=== PATIENT | male | born 1940 | race Caucasian/White ===

== ENCOUNTER 2016-08-13 17:29 | Observation (INO) | payer MEDICARE ==
[2016-08-13] MEDS ORDERED: Sodium Chloride 0.9% 1,000 ML IV ONE ×2 (18:31→21:42)
[2016-08-13] MEDS ORDERED: Sodium Chloride 0.9% 10 ML Syringe FLUSH PRN (19:10)
--- NOTE | 2016-08-13 21:11 | EDM.PDOC ---
[id number] 4d DEHYDRATION Time Seen by Provider: 08/13/16 18:26 Source of Information: Reports: Patient History Limitations: Reports: Altered Mental Status - History of Present Illness INITIAL COMMENTS - FREE TEXT/NARRATIVE: 75 y.o.w.m came to the ed, after he was seen in the clinic and found to have an acutely elevated CR 1.8-3.4) and BUN (30-60)Pt was on Motrin and Acyclovir (for herpes Zoster). Acyclovir was started last Thursday. On arrival, pt was able to void. Blader scanner showed 350 cc, residual. Nephrology was consulted. Dr. Pittman recommended, to give the PT NS over night and check labs in am. Pt denies any acute medical issues. BP was 108/66 pulse was 62 Onset: Gradual Onset Date: 08/11/16 Onset Time: 08:00 Duration: Day(s):, Getting Worse Location: Reports: Abdomen Severity: Moderate Improves with: Reports: None Worsens with: Reports: None - Related Data Allergies Allergy/AdvReac Type Severity Reaction Status Date / Time amoxicillin Allergy Severe Hives Verified 08/13/16 18:25 Home Meds: Home Meds Allopurinol [Zyloprim] 150 mg PO DAILY 08/13/16 [History] Aspirin [Adult Low Dose Aspirin EC] 81 mg PO DAILY 08/13/16 [History] Atenolol [Tenormin] 100 mg PO DAILY 08/13/16 [History] Multivitamin [Multivitamins] 1 each PO DAILY 08/13/16 [History] Simvastatin [Zocor] 80 mg PO BEDTIME 08/13/16 [History] amLODIPine [Norvasc] 10 mg PO DAILY 08/13/16 [History] Cholecalciferol (Vitamin D3) [Vitamin D3] 1,000 units PO DAILY 08/14/16 [History ] Past Medical History HEENT History: Reports: Impaired Vision Cardiovascular History: Reports: Hypertension Genitourinary History: Reports: Renal Disease - Infectious Disease History Infectious Disease History: Reports: Chicken Pox, Shingles Social & Family History - Tobacco Use Smoking Status *Q: Current Every Day Smoker Years of Tobacco use: 58 Packs/Tins Daily: 1 - Caffeine Use Caffeine Use: Reports: Coffee - Recreational Drug Use Recreational Drug Use: No ED ROS GENERAL - Review of Systems Review Of Systems: Unable To Obtain Constitutional: Reports: No Symptoms HEENT: Reports: No Symptoms Respiratory: Reports: No Symptoms Cardiovascular: Reports: No Symptoms Endocrine: Reports: No Symptoms GI/Abdominal: Reports: No Symptoms : Reports: No Symptoms Musculoskeletal: Reports: No Symptoms Skin: Reports: Pruritis, Rash Neurological: Reports: No Symptoms Psychiatric: Reports: No Symptoms Hematologic/Lymphatic: Reports: No Symptoms Immunologic: Reports: No Symptoms ED EXAM, GENERAL - Physical Exam Exam: See Below Exam Limited By: No Limitations General Appearance: Alert, WD/WN, No Apparent Distress Eye Exam: Bilateral Eye: Normal Inspection Ears: Normal External Exam Ear Exam: Bilateral Ear: Auricle Normal Nose: Normal Inspection Throat/Mouth: Other (dry mucosal membranes) Head: Atraumatic, Normocephalic Neck: Normal Inspection, Supple, Non-Tender, Full Range of Motion Respiratory/Chest: No Respiratory Distress, Lungs Clear, Normal Breath Sounds Cardiovascular: Normal Peripheral Pulses, Regular Rate, Rhythm, No Edema Peripheral Pulses: 1+: Femoral (L), Femoral (R) GI/Abdominal: Normal Bowel Sounds (Male) Exam: Deferred Rectal (Males) Exam: Deferred Back Exam: Normal Inspection, Full Range of Motion Extremities: Normal Inspection Neurological: Alert, Oriented, CN II-XII Intact, Normal Cognition Psychiatric: Normal Affect, Normal Mood Skin Exam: Warm, Dry, Normal Color, Rash (shingles left abd. wall) Lymphatic: No Adenopathy Course - Vital Signs Text/Narrative:: 75 y.o.w.m came to the ed, after he was seen in the clinic and found to have an acutely elevated CR 1.8-3.4) and BUN (30-60)Pt was on Motrin and Acyclovir (for herpes Zoster). Acyclovir was started last Thursday. On arrival, pt was able to void. Blader scanner showed 350 cc, residual. Nephrology was consulted. Dr. Pittman recommended, to give the PT NS over night and check labs in am. Pt denies any acute medical issues. BP was 108/66 pulse was 62 PE: Dry mucosal membrane. herpes zoster left abd. wall Labs: Ns 129 K 5.1 ISHAAN 60 Cr 3.5 UA: Neg SG 1.01 Protein 30, pH 6.0, Bladder scanner: 350 cc. Impression: Acute renal insufficiency, possible medication related (acyclovir, motrin), dehydration Consultation: Sm[facility] Room Operator at [facility] Plan: Admit for obs, recheck labs in am. report results to [place] Last Recorded V/S: Last Vital Signs Temp 37.0 C 08/14/16 08:01 Pulse 81 08/14/16 08:01 Resp 17 08/14/16 08:01 BP 115/79 08/14/16 08:01 Pulse Ox 95 08/14/16 08:01 - Orders/Labs/Meds Labs: Laboratory Tests 08/13/16 08/13/16 08/13/16 Range/Units 18:50 18:50 18:50 WBC 7.9 (4.5-12.0) X10-3/uL RBC 3.74 L (4.30-5.75) x10(6)uL Hgb 12.0 (11.5-15.5) g/dL Hct 35.6 (30.0-51.3) % MCV 95.3 (80-96) fL MCH 32.2 (27.7-33.6) pg MCHC 33.8 (32.2-35.4) g/dL RDW 15.0 (11.5-15.5) % Plt Count 171 (125-369) X10(3)uL MPV 8.5 (7.4-10.4) fL Neut % (Auto) 81.5 (46-82) % Lymph % (Auto) 11.5 L (13-37) % [place] % (Auto) 6.1 (4-12) % Eos % (Auto) 1 (1.0-5.0) % Baso % (Auto) 0 (0-2) % Neut # (Auto) 6.4 (1.6-8.3) # Lymph # (Auto) 0.9 (0.6-5.0) # [place] # (Auto) 0.5 (0.0-1.3) # Eos # (Auto) 0.1 (0.0-0.8) # Baso # (Auto) 0.0 (0.0-0.2) # Sodium 129 L (135-145) mmol/L Potassium 5.1 (3.5-5.3) mmol/L Chloride 105 (100-110) mmol/L Carbon Dioxide 16 L (23-29) mmol/L BUN 60 H (8-23) mg/dL Creatinine 3.4 H* (0.6-1.3) mg/dL Est Cr Clr Drug Dosing 18.44 mL/min Estimated GFR (MDRD) 18 L (>60) BUN/Creatinine Ratio 17.1 (9-20) Glucose 100 (80-116) mg/dL Calcium 9.4 (8.6-10.2) mg/dL B-Natriuretic Peptide 104 H (0-100) pg/mL Urine Color (YELLOW) Urine Appearance (CLEAR) Urine pH (5.0-6.5) Ur Specific [place] (1.010-1.025) Urine Protein (NEGATIVE) mg/dL Urine Glucose (UA) (NEGATIVE) mg/dL Urine Ketones (NEGATIVE) mg/dL Urine Occult Blood (NEGATIVE) Urine Nitrite (NEGATIVE) Urine Bilirubin (NEGATIVE) Urine Urobilinogen (NEGATIVE) mg/dL Ur Leukocyte Esterase (NEGATIVE) Urine RBC (0) Urine WBC (0) Ur Squamous Epith Cells (NS,R,O) Urine Bacteria (NS) 08/13/16 Range/Units 20:05 WBC (4.5-12.0) X10-3/uL RBC (4.30-5.75) x10(6)uL Hgb (11.5-15.5) g/dL Hct (30.0-51.3) % MCV (80-96) fL MCH (27.7-33.6) pg MCHC (32.2-35.4) g/dL RDW (11.5-15.5) % Plt Count (125-369) X10(3)uL MPV (7.4-10.4) fL Neut % (Auto) (46-82) % Lymph % (Auto) (13-37) % [place] % (Auto) (4-12) % Eos % (Auto) (1.0-5.0) % Baso % (Auto) (0-2) % Neut # (Auto) (1.6-8.3) # Lymph # (Auto) (0.6-5.0) # [place] # (Auto) (0.0-1.3) # Eos # (Auto) (0.0-0.8) # Baso # (Auto) (0.0-0.2) # Sodium (135-145) mmol/L Potassium (3.5-5.3) mmol/L Chloride (100-110) mmol/L Carbon Dioxide (23-29) mmol/L BUN (8-23) mg/dL Creatinine (0.6-1.3) mg/dL Est Cr Clr Drug Dosing mL/min Estimated GFR (MDRD) (>60) BUN/Creatinine Ratio (9-20) Glucose (80-116) mg/dL Calcium (8.6-10.2) mg/dL B-Natriuretic Peptide (0-100) pg/mL Urine Color Yellow (YELLOW) Urine Appearance Clear (CLEAR) Urine pH 6.0 (5.0-6.5) Ur Specific [place] 1.010 (1.010-1.025) Urine Protein 30 H (NEGATIVE) mg/dL Urine Glucose (UA) Normal (NEGATIVE) mg/dL Urine Ketones Negative (NEGATIVE) mg/dL Urine Occult Blood Negative (NEGATIVE) Urine Nitrite Negative (NEGATIVE) Urine Bilirubin Negative (NEGATIVE) Urine Urobilinogen Normal (NEGATIVE) mg/dL Ur Leukocyte Esterase Negative (NEGATIVE) Urine RBC 0-5 (0) Urine WBC 0-5 (0) Ur Squamous Epith Cells Occasional (NS,R,O) Urine Bacteria Few H (NS) Meds: Medications Discontinued Medications Generic Name Dose Route Start Last Admin Trade Name Spencerq PRN Reason Stop Dose Admin Sodium Chloride 1,000 mls @ 999 mls/hr 08/13/16 18:31 08/13/16 19:08 Normal Saline IV 08/13/16 19:31 999 mls/hr .BOLUS ONE Administration Sodium Chloride 1,000 mls @ 999 mls/hr 08/13/16 21:42 08/13/16 20:40 Normal Saline IV 08/13/16 22:42 999 mls/hr .BOLUS ONE Administration Sodium Chloride 1,000 mls @ 150 mls/hr 08/13/16 22:15 08/14/16 06:18 Normal Saline IV 150 mls/hr ASDIRECTED ARIS Administration Sodium Chloride 10 ml 08/13/16 19:10 Saline Flush FLUSH ASDIRECTED PRN Keep Vein Open Departure - Departure Time of Disposition: 05:00 Disposition: Refer to Observation Condition: Fair Clinical Impression: Acute renal insufficiency - Discharge Information
[2016-08-13] MEDS: Sodium Chloride 0.9% 1,000 ML IV SCH (22:32)
[2016-08-14] MEDS: Sodium Chloride 0.9% 1,000 ML IV SCH (06:18)
--- NOTE | 2016-08-14 08:47 | PCM.HP ---
H&P History of Present Illness - General Date of Service: 08/14/16 History Limitations: Reports: No Limitations - History of Present Illness Initial Comments - Free Text/Narative: 75-year-old male admitted because of renal failure. He has a history of chronic kidney disease with baseline creatinine of about 2.1. He came to the ER with a creatinine of 3.4. He recently had herpes zoster and was treated with Valtrex for dose. He has also been taking Lasix and lisinopril for hypertension which is stable. This morning he has no complaints he pulled over 2000 mL of urine last night. The rash on the upper abdomen is not painful - Related Data Allergies/Adverse Reactions: Allergies Allergy/AdvReac Type Severity Reaction Status Date / Time amoxicillin Allergy Severe Hives Verified 08/13/16 18:25 Home Medications: Home Meds Allopurinol [Zyloprim] 150 mg PO DAILY 08/13/16 [History] Aspirin [Adult Low Dose Aspirin EC] 81 mg PO DAILY 08/13/16 [History] Atenolol [Tenormin] 100 mg PO DAILY 08/13/16 [History] Multivitamin [Multivitamins] 1 each PO DAILY 08/13/16 [History] Simvastatin [Zocor] 80 mg PO BEDTIME 08/13/16 [History] amLODIPine [Norvasc] 10 mg PO DAILY 08/13/16 [History] Cholecalciferol (Vitamin D3) [Vitamin D3] 1,000 units PO DAILY 08/14/16 [History ] Past Medical History HEENT History: Reports: Impaired Vision Cardiovascular History: Reports: High Cholesterol, Hypertension, Other (See Below) Other Cardiovascular History: coronary atherosclerosis, stent placement Genitourinary History: Reports: Renal Disease - Infectious Disease History Infectious Disease History: Reports: Chicken Pox, Shingles - Past Surgical History Cardiovascular Surgical History: Reports: Carotid Endarterectomy, Other (See Below) Other Cardiovascular Surgeries/Procedures: has had procedure to bilateral carotids GI Surgical History: Reports: Other (See Below) Other GI Surgeries/Procedures: has had a hernia repair, indicates left inguinal area Social & Family History - Tobacco Use Smoking Status *Q: Current Every Day Smoker Years of Tobacco use: 58 Packs/Tins Daily: 1 Used Tobacco, but Quit: No Second Hand Smoke Exposure: No - Caffeine Use Caffeine Use: Reports: Coffee - Alcohol Use Days Per Week of Alcohol Use: 7 Number of Drinks Per Day: 1 Total Drinks Per Week: 7 Date of Last Drink: 08/12/16 - Recreational Drug Use Recreational Drug Use: No H&P Review of Systems - Review of Systems: Review Of Systems: ROS reveals no pertinent complaints other than HPI. Exam - Exam Exam: See Below - Vital Signs Vital Signs: Last Vital Signs Temp 98.4 F 08/14/16 04:30 Pulse 68 08/14/16 04:30 Resp 20 08/14/16 04:30 BP 129/70 08/14/16 04:30 Pulse Ox 92 L 08/14/16 04:30 Weight: 83.007 kg - Exam General: Alert, Oriented, 4 HEENT: PERRLA, Hearing Intact, Mucosa Moist & [place], Nares Patent, Normal Nasal Septum, Posterior Pharynx Clear, Conjunctiva Clear, EOMI, EACs Clear, TMs Clear Neck: Supple, Trachea Midline, 2 Lungs: Clear to Auscultation, Normal Respiratory Effort Cardiovascular: Regular Rate, Regular Rhythm Abdomen: Normal Bowel Sounds, Soft (Male) Exam: Deferred Rectal (Males) Exam: Deferred Back Exam: Normal Inspection, Full Range of Motion, NT Extremities: 3, Normal Inspection, 10 Skin: Rash (Red rash,Herpetic rash left upper quadrant), Other Neurological: Cranial Nerves Intact, Reflexes Equal Bilateral Neuro Extensive - Mental Status: Alert, Oriented x3, Normal Mood/Affect, Normal Cognition Neuro Extensive - Motor, Sensory, Reflexes: CN II-XII Intact, Normal Gait, Normal Reflexes Psychiatric: Alert, Normal Affect, Normal Mood - Patient Data Lab Results Last 24 hrs: Laboratory Results - last 24 hr 08/14/16 Range/Units 06:30 Sodium 139 D (135-145) mmol/L Potassium 5.0 (3.5-5.3) mmol/L Chloride 115 H D (100-110) mmol/L Carbon Dioxide 16 L (23-29) mmol/L BUN 51 H (8-23) mg/dL Creatinine 2.9 H* (0.6-1.3) mg/dL Est Cr Clr Drug Dosing 21.62 mL/min Estimated GFR (MDRD) 21 L (>60) BUN/Creatinine Ratio 17.6 (9-20) Glucose 90 (80-116) mg/dL Calcium 9.0 (8.6-10.2) mg/dL Result Diagrams: 08/13/16 18:50 08/14/16 06:30 *Q Meaningful Use (ADM) - VTE *Q VTE Criteria *Q: - Stroke *Q Stroke Criteria *Q: - AMI *Q AMI Criteria *Q: - Problem List (1) CKD (chronic kidney disease) SNOMED Code(s): 452955893 ICD Code: N18.9 - CHRONIC KIDNEY DISEASE, UNSPECIFIED Status: Acute Current Visit: Yes Qualifiers: Chronic kidney disease stage: stage 4 (severe) Qualified Code(s): N18.4 - Chronic kidney disease, stage 4 (severe) (2) HTN (hypertension) SNOMED Code(s): 92740488 ICD Code: I10 - ESSENTIAL (PRIMARY) HYPERTENSION Status: Acute Current Visit: Yes Qualifiers: Hypertension type: essential hypertension Qualified Code(s): I10 - Essential (primary) hypertension (3) Shingles SNOMED Code(s): 4435369 ICD Code: B02.9 - ZOSTER WITHOUT COMPLICATIONS Status: Acute Current Visit: Yes (4) Gout SNOMED Code(s): 22486439 ICD Code: M10.9 - GOUT, UNSPECIFIED Status: Chronic Current Visit: Yes Qualifiers: Encounter type: sequela (5) Tobacco abuse SNOMED Code(s): 115931298, 335000104 ICD Code: Z72.0 - TOBACCO USE Status: Chronic Current Visit: Yes Problem List Initiated/Reviewed/Updated: Yes Orders Last 24hrs: Active Orders 24 hr Category Date Time Status Clear Liquid Diet [DIET] Diet 08/14/16 Breakfast Active Medication Orders Sodium Chloride (Normal Saline) 1,000 mls @ 150 mls/hr IV ASDIRECTED ARIS Last Admin: 08/14/16 06:18 Dose: 150 mls/hr Infusion: 08/14/16 05:13 Dose: 150 mls/hr Admin: 08/13/16 22:32 Dose: 150 mls/hr Sodium Chloride (Saline Flush) 10 ml FLUSH ASDIRECTED PRN PRN Reason: Keep Vein Open Assessment/Plan Comment:: We discharge the patient and advised not to take NSAIDs, Valtrex, or lisinopril. Will continue the atenolol for blood pressure, use Tylenol as needed for pain and return to the clinic on Thursday the basic metabolic profile.
[2016-08-14 10:01] VITALS: BP 115/79
== END 2016-08-14 09:29 | disposition home or self-care (01) ==
LOC: FB.ED 17:29 → FB.MS 22:07
PROVIDERS: ADMIT Emergency Medicine; ATTEND Family Medicine
DX: I12.9 Hypertensive chronic kidney disease with stage 1 through stage 4 chronic kidney disease, or unspecified chronic kidney disease (principal); N18.4 Chronic kidney disease, stage 4 (severe); E78.00 Pure hypercholesterolemia, unspecified; B02.9 Zoster without complications; M10.9 Gout, unspecified; Z72.0 Tobacco use; Z88.1 Allergy status to other antibiotic agents; Z79.82 Long term (current) use of aspirin; Z79.899 Other long term (current) drug therapy; F17.210 Nicotine dependence, cigarettes, uncomplicated; Z98.890 Other specified postprocedural states; Z95.5 Presence of coronary angioplasty implant and graft
CPT/HCPCS: 36415; 51702; 51798; 80048; 81001; 83880; 85025; 96360; 96361; 99284; G0378; J7040; 99219; 99283

== ENCOUNTER 2017-05-30 00:27 | Emergency (ER) | payer MEDICARE ==
[2017-05-30 06:22] VITALS: BP 155/80
--- NOTE | 2017-06-03 11:29 | ER ---
DATE SEEN: 05/30/2017 TIME SEEN: The patient was seen within 20 minutes of arrival. CHIEF COMPLAINT: This 76-year-old has bleeding from a partial nasal excision performed by Dr. Galdamez, on the left outer naris. The more distal basilar left lateral naris has been excised approximately 6 [address] Galdamez had excised and fulgurated this after completing partial excision today. Now, short number of hours later, he has mild bleeding. Unable to stop the bleeding. The patient is not on anticoagulants, except for aspirin. PAST MEDICAL HISTORY: Chronic kidney disease, hypertension, shingles, gout, tobacco abuse, renal and adrenal insufficiency. CURRENT MEDICATIONS: 1. Amlodipine. 2. Zocor. 3. Multivitamins. 4. Vitamin D. 5. Atenolol. 6. Zyloprim. 7. Aspirin. ALLERGIES: Amoxil. REVIEW OF SYSTEMS: The patient does not feel lightheaded or dizzy or is experiencing pain, but he has this bleeding and putting pressure on it does not seem to stabilize it even if you put several napkins on it. PHYSICAL EXAMINATION: VITAL SIGNS: Not listed on the chart. Discharge blood pressure 155/80, heart rate 68 at 0149 hours. GENERAL: The patient is alert, pleasant, mildly overweight, in no acute distress. HEENT: Initially, while waiting, he was advised to place a cotton gauze over this. The patient's bleeding relented, but then recurred. Consequently, silver nitrate was utilized to chemically cauterize the wound. This seemed to work quite well. He was bleeding-free for at least a half hour before dismissal. Pharynx without abnormality. No posterior pharynx blood. NECK: Negative. No bruits. LUNGS: Clear without rales. HEART: S1, S2. No murmur. The patient has a congested cough. EXTREMITIES: Without edema. ABDOMEN: Not palpated. ASSESSMENT: 1. Postop nasal cancer lesion excised, bleeding resolved with silver nitrate. The patient to follow up with doctor as needed, otherwise, call Dr. Galdamez if he has recurrent persistent bleeding. The patient advised that if he has bleeding to use 1 or 2 cotton gauze, put pressure on it for at least a half hour. This should resolve some of the bleeding. 2. The patient has chronic obstructive lung disease and is a smoker with congested cough. No sign of pneumonia. 3. Hypertension. 4. Gout. 5. Obesity. 6. Adrenal insufficiency. 7. Chronic kidney disease. 8. Dyslipidemia. /[id number] GENE/IJEOMA
== END 2017-05-30 02:10 | disposition home or self-care (01) ==
LOC: FB.ED 00:27
DX: L76.21 Postprocedural hemorrhage of skin and subcutaneous tissue following a dermatologic procedure (principal); J44.9 Chronic obstructive pulmonary disease, unspecified; I12.9 Hypertensive chronic kidney disease with stage 1 through stage 4 chronic kidney disease, or unspecified chronic kidney disease; N18.9 Chronic kidney disease, unspecified; M10.9 Gout, unspecified; E66.9 Obesity, unspecified; E78.5 Hyperlipidemia, unspecified; E27.40 Unspecified adrenocortical insufficiency; Z88.1 Allergy status to other antibiotic agents
CPT/HCPCS: 12011; 99283